=== PATIENT | female | born 1985 | race Caucasian/White ===

== ENCOUNTER 2020-12-21 16:31 | Emergency (ER) | payer OTHER ==
[~2020-12-21] VITALS: Ht 157.5 cm; Wt 77.1 kg
[~2020-12-21 16:31] MED LIST: ATARAX25 MG PO; AUGMENTIN1 TAB.SR2 PO; CLARINEX5 MG/TAB PO; CLEOCIN HCL300 MG PO; GILPHEX TR1 TAB.SR . PO; MOTRIN800 MG PO; ONE DAILY FOR1 EACH; PRENATAL CAPLE1 EACH
[2020-12-21] MEDS ORDERED: ZOFRAN8 MG PO (21:32)
[2020-12-21] MEDS ORDERED: PEPCID AC20 MG PO (21:32)
== END 2020-12-21 21:36 | disposition home or self-care (01) ==
LOC: ER 16:31
DX: K52.89 Other specified noninfective gastroenteritis and colitis (principal)

== ENCOUNTER 2021-06-15 14:15 | Outpatient (CLI) | payer OTHER ==
[~2021-06-15 14:15] MED LIST changes: +PEPCID AC20 MG PO; +ZOFRAN8 MG PO
== END 2021-06-15 14:35 | disposition home or self-care (01) ==
LOC: NST 14:15
PROVIDERS: ATTEND Obstetrics & Gynecology
DX: Z34.83 Encounter for supervision of other normal pregnancy, third trimester (principal)

== ENCOUNTER 2021-06-21 09:37 | Outpatient (CLI) | payer OTHER | END 2021-06-21 09:53 | disposition home or self-care (01) | LOC: NST 09:37 | PROVIDERS: ATTEND Obstetrics & Gynecology | DX: Z34.83 Encounter for supervision of other normal pregnancy, third trimester (principal) ==

== ENCOUNTER 2021-06-21 11:25 | Inpatient (IN) | payer OTHER ==
[~2021-06-21] VITALS: Ht 160 cm; Wt 88.0 kg
== END 2021-06-25 11:22 | disposition home or self-care (01) | DRG 807 ==
LOC: OB/GYN 11:25 → LDR 06-23 04:57 → SURG-SUITE 06-23 17:15
PROVIDERS: ADMIT Obstetrics & Gynecology; ATTEND Obstetrics & Gynecology
PROC: 10E0XZZ Delivery of Products of Conception, External Approach (ICD-10-PCS; principal; 2021-06-23)
PROC: 0W8NXZZ Division of Female Perineum, External Approach (ICD-10-PCS; 2021-06-23)
PROC: 4A1HXCZ Monitoring of Products of Conception, Cardiac Rate, External Approach (ICD-10-PCS; 2021-06-23)
DX: O80 Encounter for full-term uncomplicated delivery (principal); Z37.0 Single live birth; Z3A.40 40 weeks gestation of pregnancy; Z20.822 Contact with and (suspected) exposure to COVID-19

== ENCOUNTER 2023-07-10 09:53 | Emergency (ER) | payer OTHER ==
[~2023-07-10] VITALS: Ht 157.5 cm; Wt 70.3 kg
[2023-07-10 11:58] LABS: HEMATOCRIT 40.2 % (36.0-45.00); HEMOGLOBIN 13.9 g/dL (12.0-15.00); MEAN CELL VOLUME 84.6 fL (80.00-100.00); MEAN CORPUSCULAR HEMOGLOBIN 29.2 pg (27.00-32.0); MEAN CORPUSCULAR HGB CONC 34.5 g/dl (32.0-36.0); PLATELET COUNT 348 K/uL (150-450); RED BLOOD COUNT 4.75 M/uL (4.00-6.00); RED CELL DISTRIBUTION WIDTH 13.6 % (11.5-14.5)
[2023-07-10 12:46] LABS: CREATININE SERUM 0.7 mg/dL (0.55-1.02); GFR 93.16; POTASSIUM 4.7 mEq/L (3.5-5.1)
== END 2023-07-10 13:20 | disposition home or self-care (01) ==
LOC: ER 09:53
PROVIDERS: General Practice
DX: R00.2 Palpitations (principal)

== ENCOUNTER 2023-10-19 14:22 | Emergency (ER) | payer OTHER ==
[~2023-10-19] VITALS: Ht 157.5 cm; Wt 74.4 kg
[2023-10-19 18:10] LABS: PH,URINE 5.5 (5.0-8.0); URINE APPEARANCE Clear; URINE BILIRRUBIN Negative (NEGATIVE); URINE BLOOD Negative; URINE COLOR Yellow; URINE GLUCOSE Negative (NEGATIVE); URINE KETONE Trace (NEGATIVE); URINE LEUKOCYTE Negative; URINE NITRATE Negative; URINE PROTEIN Trace (NEGATIVE)
[2023-10-19 18:11] LABS: URINE BACTERIA 559.3 uL (0.0-1933); URINE EPITHELIAL CELLS 20.5 uL (0.0-38.8); URINE RBC 23.2 uL (0.0-20.8); URINE WBC 11.1 uL (0.0-23.2)
[2023-10-19 18:29] LABS: URINE CAST 0.15 uL (0.0-1.40)
== END 2023-10-19 21:55 | disposition home or self-care (01) ==
LOC: ER 14:23
PROVIDERS: Emergency Medicine
DX: M94.0 Chondrocostal junction syndrome [Tietze] (principal); R07.89 Other chest pain

== ENCOUNTER 2024-03-13 17:54 | Emergency (ER) | payer OTHER ==
[~2024-03-13] VITALS: Ht 157.5 cm; Wt 73.0 kg
[2024-03-13 18:08] VITALS: BP 142/94; O2SAT 100
== END 2024-03-13 22:14 | disposition home or self-care (01) ==
LOC: ER 17:56
DX: R00.2 Palpitations (principal); M94.0 Chondrocostal junction syndrome [Tietze]